=== PATIENT | female | born 1955 | race Caucasian/White ===

== ENCOUNTER → 2020-05-16 09:27 | Outpatient (BNVA) | payer BC, SELFPAY | PROVIDERS: PCP Nurse Practitioner Women's Health; Visit Provider Obstetrics & Gynecology ==

== ENCOUNTER 2020-06-06 11:57 | Outpatient (REF) | payer BC, SELFPAY ==
--- NOTE | ~2020-06-06 | MM_ITS ---
EXAMINATION: MM SCREENING DIGITAL BREAST TOMOSYNTHESIS, BILATERAL CLINICAL INFORMATION: Screening. Asymptomatic. The lifetime risk of breast cancer based on the Tyrer-Cuzick Model is 3%. COMPARISON: Mammography: 09/04/2018, 08/03/2017, 07/12/2016 TECHNIQUE: Digital breast tomosynthesis is performed in both the craniocaudal and mediolateral oblique views along with computer-aided detection (CAD). Synthesized 2D images are generated from the tomosynthesis. FINDINGS: There are scattered areas of fibroglandular density (ACR BI-RADS breast composition Category b). There are no significant masses, abnormal calcifications, or other abnormalities. Nodule posterior 3:00 left breast is similar to prior studies. The axilla and skin contours are unremarkable. MM/MM tomosynthesis screening BI IMPRESSION: No mammographic evidence of malignancy. ASSESSMENT: BI-RADS 2: Benign RECOMMENDATION: Routine annual mammography screening. This patient's information was entered into a reminder system with a target due date for their next mammogram.
== END 2020-06-06 11:58 | disposition home or self-care (01) ==
LOC: HO.MAMMO 11:57
PROVIDERS: Visit Provider Nurse Practitioner Family
DX: Z12.31 Encounter for screening mammogram for malignant neoplasm of breast (principal)
CPT/HCPCS: 77063; 77067

== ENCOUNTER → 2021-05-20 09:12 | Outpatient (BNVA) | payer BC, SELFPAY | PROVIDERS: PCP Nurse Practitioner Family; Visit Provider Advanced Practice Midwife ==

== ENCOUNTER 2021-06-07 12:01 | Outpatient (REF) | payer BC, SELFPAY ==
--- NOTE | ~2021-06-07 | MM_ITS ---
EXAMINATION: MM SCREENING DIGITAL BREAST TOMOSYNTHESIS, BILATERAL CLINICAL INFORMATION: Screening. Asymptomatic. The lifetime risk of breast cancer based on the Tyrer-Cuzick Model is 8%. COMPARISON: Mammography: 06/06/2020, 09/04/2018, 08/03/2017, 07/12/2016 TECHNIQUE: Digital breast tomosynthesis is performed in both the craniocaudal and mediolateral oblique views along with computer-aided detection (CAD). Synthesized 2D images are generated from the tomosynthesis. FINDINGS: There are scattered areas of fibroglandular density (ACR BI-RADS breast composition Category b). Breast tissue composition borders on predominantly fatty. There is a stable nodule posterior 3:00 left breast, likely intraparenchymal node is similar to prior studies. Neither breast shows interval mass or architectural abnormality or abnormal calcifications. The axilla and skin contours are unremarkable. MM/MM tomosynthesis screening BI IMPRESSION: No mammographic evidence of malignancy. ASSESSMENT: BI-RADS 2: Benign RECOMMENDATION: Routine annual mammography screening. This patient's information was entered into a reminder system with a target due date for their next mammogram.
== END 2021-06-07 12:02 | disposition home or self-care (01) ==
LOC: HO.MAMMO 12:01
PROVIDERS: Visit Provider Internal Medicine
DX: Z12.31 Encounter for screening mammogram for malignant neoplasm of breast (principal)
CPT/HCPCS: 77063; 77067

== ENCOUNTER 2022-05-23 09:18 | Outpatient (REF) | payer MEDICARE, SELFPAY ==
[2022-05-27 13:49] LABS: HPV mRNA E6/E7 rflx Not Detected (Not Detected)
== END 2022-05-23 09:19 | disposition home or self-care (01) ==
LOC: HO.LNP 09:18
PROVIDERS: Visit Provider Advanced Practice Midwife
DX: Z01.419 Encounter for gynecological examination (general) (routine) without abnormal findings (principal)
CPT/HCPCS: 87624; 88142

== ENCOUNTER 2022-07-22 09:28 | Outpatient (REF) | payer MEDICARE, SELFPAY ==
--- NOTE | ~2022-07-22 | MM_ITS ---
EXAMINATION: MM SCREENING DIGITAL BREAST TOMOSYNTHESIS, BILATERAL CLINICAL INFORMATION: Screening. Asymptomatic. The lifetime risk of breast cancer based on the Tyrer-Cuzick Model is 6%. COMPARISON: Mammography: 06/07/2021, 11/06/2020, 09/04/2018 TECHNIQUE: Digital breast tomosynthesis is performed in both the craniocaudal and mediolateral oblique views along with computer-aided detection (CAD). Synthesized 2D images are generated from the tomosynthesis. FINDINGS: There are scattered areas of fibroglandular density (ACR BI-RADS breast composition Category b). There are no significant masses, abnormal calcifications, or other abnormalities. There is no developing density or architectural abnormality. Small nodule posterior 3:00 left breast is decreased from prior studies. The axilla and skin contours are unremarkable. There are no significant changes. MM/MM tomosynthesis screening BI IMPRESSION: No mammographic evidence of malignancy. ASSESSMENT: BI-RADS 2: Benign RECOMMENDATION: Routine annual mammography screening. This patient's information was entered into a reminder system with a target due date for their next mammogram.
== END 2022-07-22 09:29 | disposition home or self-care (01) ==
LOC: HO.MAMMO 09:28
PROVIDERS: PCP Internal Medicine; Visit Provider Internal Medicine
DX: Z12.31 Encounter for screening mammogram for malignant neoplasm of breast (principal)
CPT/HCPCS: 77063; 77067

== ENCOUNTER 2023-05-29 09:25 | Outpatient (AMB) | payer MEDICARE, SELFPAY ==
--- NOTE | 2023-05-29 09:29 | A.OFFVIS_ITS ---
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 She is doing well with no concerns. Attempting to eat a healthy diet with calcium and vitamin D and stays active with exercise w/walking. Currently sexually active. Denies any vaginal dryness or irritation. STI testing offered; she declined. Last pap smear; 05/2022. Last mammogram; 07/2022. Colonoscopy is UTD. Booked-in November. Denies any family history of ovarian or colon cancer. FH breast cancer-sister PFSH Medical History Abnormal Pap smear of cervix Hypertension Osteoporosis Depression Surgical History Hx of right knee surgery History of tubal ligation History of delivery History of oral surgery Family History (Updated 05/29/23 @ 09:35 by Dotty Hoover CMA) Sister Breast cancer, Onset Age: 68 Heart disease Mother Pancreatic cancer Lung cancer Father Heart disease Social History Household Members Other:: partner Housing: House Alcohol intake: current Alcohol intake frequency: holidays/special occasions only Patient Tobacco Use Status: Former Tobacco user Current occupational status: retired Sexual orientation: Straight/Heterosexual Gender identity: Female Female Reproductive History Menstrual Menopause type: natural Total pregnancies: 2 Full term: 2 Number of Living Children: 2 Date of last pap smear: 05/23/22 Date of Mammogram: 07/22/22 Review of Systems Const All systems reviewed & are unremarkable except as noted in HPI and below Reports as per HPI Eyes Reports no additional complaints ENT Reports no additional complaints Card Reports no additional complaints Resp Reports no additional complaints GI Reports as per HPI and Reports no additional complaints Reports as per HPI Musc Reports no additional complaints Skin/Breast Reports as per HPI Neuro Reports no additional complaints Psych Reports no additional complaints Endo Reports no additional complaints Andrea/Lymph Reports no additional complaints Aller/Immun Reports no additional complaints Physical Exam Vital Signs: Last Vital Signs BP 110/70 05/29/23 09:32 BMI result Body Mass Index 26.8 Const General: cooperative, healthy appearing, no acute distress, well developed and alert Orientation/consciousness: patient oriented x3 HEENT Head: Yes normal to inspection Eyes General: appearance normal, both eyes and all related structures Neck Neck: Yes normal visual inspection Thyroid: Thyroid normal Chest Chest palpation & inspection: normal inspection of the chest and other (no puckering, dimpling, peau de orange, retraction, discharge, masses) Breast/axilla inspection: normal inspection of the breasts Breast/axilla palpation: normal palpation of the breasts Resp Effort & Inspection: normal respiratory effort GI Inspection: Yes normal to inspection Palpation (GI): Soft to palpation Rectal Exam - Female: deferred General: Yes bladder normal to palpation External Female Exam: normal external appearance and normal appearance of the urethra Speculum Exam - Vagina: normal appearance of the vagina, normal palpation, normal vaginal discharge and vagina atrophic Speculum Exam - Cervix: normal appearance of the cervix and normal palpation Bimanual exam- vagina & uterus: normal bimanual exam, normal palpation, uterine size normal, bladder normal to palpation, normal palpation and non-tender Bimanual Exam- Adnexa, other: no masses Skin General skin exam: no rashes or lesions noted Rashes: no rashes Neuro General: patient oriented x3 Cognition (Neuro): normal cognition Extrem General: Yes normal to inspection Psych Attitude: cooperative Thought process: Normal thought process present Assessment & Plan Assessment & Plan (1) Encounter for well woman exam with routine gynecological exam: Code(s): Z01.419 - Encounter for gynecological examination (general) (routine) without abnormal findings Plan Discussed: Current recommendations for pap smears per ASCCP guidelines. Breast awareness, periodic self breast exams and yearly mammogram. Maintain a healthy lifestyle, well balanced diet including Calcium 1,200 mg and Vitamin D 600 IU daily, and routine exercise. Contact the office with any postmenopausal bleeding. Patient verbalizes understanding and agrees to the plan of care. She was given opportunity to ask questions and all questions were answered to the best of my ability. RTO in 1 year for annual primary care nurse exam. This note is constructed using voice recognition software. While every effort has been made to ensure accuracy, tire bladder maker errors may have been included. Coding Level of Care Code Est Pt Prev Care >65y(73534) Diagnoses Encounter for well woman exam with routine gynecological exam Z01.419
[2023-05-29 09:32] VITALS: BP 110/70; BMI 26.8
== END 2023-05-29 10:32 | disposition home or self-care (01) ==
PROVIDERS: Visit Provider Advanced Practice Midwife
DX: Z01.419 Encounter for gynecological examination (general) (routine) without abnormal findings (principal)
CPT/HCPCS: 99397

== ENCOUNTER → 2023-05-29 09:25 | Outpatient (BNVA) | payer MEDICARE, SELFPAY | PROVIDERS: Visit Provider Advanced Practice Midwife ==

== ENCOUNTER 2024-01-12 09:43 | Outpatient (REF) | payer MEDICARE, SELFPAY ==
--- NOTE | ~2024-01-12 | MM_ITS ---
EXAMINATION: MM SCREENING DIGITAL BREAST TOMOSYNTHESIS, BILATERAL CLINICAL INFORMATION: Screening. Asymptomatic. COMPARISON: Mammography: Comparison is made with available priors TECHNIQUE: Digital breast mammography with tomosynthesis is performed in both the craniocaudal and mediolateral oblique views along with computer-aided detection (CAD). FINDINGS: There are scattered areas of fibroglandular density (ACR BI-RADS breast composition Category b). There are no significant masses, abnormal calcifications, or other abnormalities. MM/MM tomosynthesis screening BI IMPRESSION: No mammographic evidence of malignancy. ASSESSMENT: BI-RADS BI-RADS 1 - Negative RECOMMENDATION: Routine annual mammography screening. 1 year F/U This examination should not preclude the clinical evaluation of a suspicious palpable abnormality. This patient's information was entered into a reminder system with a target due date for their next mammogram. Electronically signed by: Ester Jennings DO 01/20/2024 10:29 AM [facility]
== END 2024-01-12 09:44 | disposition home or self-care (01) ==
LOC: HO.MAMMO 09:43
PROVIDERS: PCP Internal Medicine; Visit Provider Internal Medicine
DX: Z12.31 Encounter for screening mammogram for malignant neoplasm of breast (principal)
CPT/HCPCS: 77063; 77067

== ENCOUNTER → 2024-01-12 10:00 | Outpatient (BNV) | payer MEDICARE, SELFPAY | PROVIDERS: PCP Internal Medicine; Visit Provider Internal Medicine | DX: Z12.31 Encounter for screening mammogram for malignant neoplasm of breast (principal) | CPT/HCPCS: 77063; 77067 ==

== ENCOUNTER 2024-09-13 11:11 | Outpatient (AMB) | payer MEDICARE, SELFPAY ==
--- NOTE | 2024-09-13 11:17 | MHC.OFFVIS ---
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 She is doing well with accounting/finance tutor concerns. Currently sexually active. Denies any vaginal dryness or irritation. Attempting to eat a healthy diet with calcium and vitamin D and stays active with exercise. Last pap smear; 2022, negative. Last mammogram; 2023. Colonoscopy is UTD. Denies any family history of breast, ovarian or colon cancer. [facility] Medical History Abnormal Pap smear of cervix Hypertension Osteoporosis Depression Surgical History History of ankle surgery Hx of right knee surgery History of tubal ligation History of delivery History of oral surgery Family History Sister Breast cancer, Onset Age: 68 Heart disease Mother Pancreatic cancer Lung cancer Father Heart disease Sister Heart disease Social History Household Members Other:: partner Housing: House Alcohol intake: current Alcohol intake frequency: holidays/special occasions only Patient Tobacco Use Status: Former Tobacco user Current occupational status: retired Sexual orientation: Straight/Heterosexual Gender identity: Female Female Reproductive History Menstrual control method: permanent sterilization Permanent Sterilization: BTL Menopause type: natural Total pregnancies: 2 Full term: 2 Number of Living Children: 2 Date of last pap smear: 05/23/22 (neg pap and hpv) History of abnormal pap smear: Yes (2017 ascus-h, colpo) Date of Mammogram: 01/12/24 (Birad 1) Review of Systems Const All systems reviewed & are unremarkable except as noted in HPI and below Reports as per HPI Eyes Reports no additional complaints ENT Reports no additional complaints Card Reports no additional complaints Resp Reports no additional complaints GI Reports as per HPI and Reports no additional complaints Reports as per HPI Musc Reports no additional complaints Skin/Breast Reports as per HPI Neuro Reports no additional complaints Psych Reports no additional complaints Endo Reports no additional complaints Andrea/Lymph Reports no additional complaints Aller/Immun Reports no additional complaints Physical Exam Vital Signs: Last Vital Signs BP 128/74 09/13/24 11:19 BMI result Body Mass Index 24.0 Const General: cooperative, healthy appearing, no acute distress, well developed and alert Orientation/consciousness: patient oriented x3 HEENT Head: Yes normal to inspection Eyes General: appearance normal, both eyes and all related structures Neck Neck: Yes normal visual inspection Thyroid: Thyroid normal Chest Chest palpation & inspection: normal inspection of the chest and other (no puckering, dimpling, peau de orange, retraction, discharge, masses) Breast/axilla inspection: normal inspection of the breasts Breast/axilla palpation: normal palpation of the breasts Resp Effort & Inspection: normal respiratory effort GI Inspection: Yes normal to inspection Palpation (GI): Soft to palpation Rectal Exam - Female: deferred General: Yes bladder normal to palpation External Female Exam: normal external appearance and normal appearance of the urethra Speculum Exam - Vagina: normal appearance of the vagina, normal palpation and normal vaginal discharge Speculum Exam - Cervix: normal appearance of the cervix and normal palpation Bimanual exam- vagina & uterus: normal bimanual exam, normal palpation, uterine size normal, bladder normal to palpation, normal palpation and non-tender Bimanual Exam- Adnexa, other: no masses Skin General skin exam: no rashes or lesions noted Rashes: no rashes Neuro General: patient oriented x3 Cognition (Neuro): normal cognition Extrem General: Yes normal to inspection Psych Attitude: cooperative Thought process: Normal thought process present Assessment & Plan Assessment & Plan (1) Encounter for well woman exam with routine gynecological exam: Code(s): Z01.419 - Encounter for gynecological examination (general) (routine) without abnormal findings Category: Medical Plan Discussed: Current recommendations for pap smears per ASCCP guidelines. Breast awareness, periodic self breast exams and yearly mammogram. Maintain a healthy lifestyle, well balanced diet including Calcium 1,200 mg and Vitamin D 600 IU daily, and routine exercise. Contact the office with any postmenopausal bleeding. Patient verbalizes understanding and agrees to the plan of care. She was given opportunity to ask questions and all questions were answered to the best of my ability. 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 This note is constructed using voice recognition software. While every effort has been made to ensure accuracy, white lead filterer errors may have been included. Coding Level of Care Code Est Pt Prev Care >65y(36192) Diagnoses Encounter for well woman exam with routine gynecological exam Z01.419
[2024-09-13 11:19] VITALS: BP 128/74; BMI 24.0
--- OUTSIDE RECORDS SUMMARY | 2024-09-13 12:27 | XMS_ITS | Patient Health Record ---
Author Organization [facility] Usama Bajwaley Address [address] [facility] [place] [address] Care Team Providers Care Buildings And Grounds Coordinator Name Role Phone Keyur RICHARD, Abraham Primary Care Provider Unava ilable Black, Dasha Unavailable [phone] Allergies Allergen (clinical drug ingredient) Drug/Non Drug Allergy documented on EMR Reaction Allergy Type Onset Date Status acetaminophen / oxycodone Percocet itching Drug Allergy Active Reason For Referral No Information Medications Medication SIG (Take, Route, Frequency, Duration) Notes Start Date End Date Status Work Note . . . Pt may return to work at regular hours and duty starting 02/10/18 01/19/2018 Not-Taking Neurontin 300 MG 1-2 capsule Orally Three times a day; Duration: 5 days Not-Taking Extra Strength Acetaminophen 500 MG 2 capsules as needed Orally every 6 hrs; Duration: 5 days Not-Taking Work Note . . . Medical from wor k 12/18/17-02/10/18 12/08/2017 Not-Taking Gabapentin 300 MG 1 capsule Orally at bedtime; Duration: 7 days 09/10/2021 Not-Taking Ibuprofen 200 MG 3 tablets with food or milk as needed Orally every 6 hrs; Duration: 5 days Not-Taking Acetaminophen Extra Strength 500 MG 2 tablet as needed Orally every 6 hrs; Duration: 14 days 09/10/2021 Not-Taking Ibuprofen 800 MG 1 tablet with food o r milk as needed Orally every 6 hrs; Duration: 10 days 09/10/2021 Not-Taking buPROPion HCl ER (XL) 150 MG 1 tablet in the morning Orally Once a day Active Ibandronate Sodium 150 MG 1 tablet Orally Active Immunizations Vaccine Route Administration Date Status Comme nts COVID-19 Moderna Vaccine Unknown 01/18/2021 Administered 1st 05/02/2020 2nd 05/30/2020 Social History Tobacco Use: Social History Observation Description Date Details (start date - stop date) Former Smoker NA - NA Tobacco Use/Smoking Question Answer Notes Are you a: former smoker Additional Findings: Tobacco Non-User Current no n-smoker Alcohol Screen Question Answer Notes Did you have a drink contain ing alcohol in the past year? Yes How often did you have a dri nk containing alcohol in the past year? 2 to 3 times a week (3 points) How many drinks did you have on a typical day when you were drinking in the past year? 3 or 4 drinks (1 point) How often did you have 6 or more drinks on one occasion in the past year? Less than monthly (1 point) Points 5 Interpretation Positive Tobacco use other than smoking: Question Answer Notes Are you an other tobacco user? No Problems Problem Type SNOMED Code ICD Code Onset Dates Problem Status W/U Status Risk Notes Problem Acquired hammer toe of right foot (2017782511084 105) Other hammer toe(s) (acquired), right foot (M20.41) Active confirmed Problem Acquired hammer toe of left foot (1159375571798 103) Other hammer toe(s) (acquired), left foot (M20.42) Active confirmed Plan Of Treatment Pending Test Test Name Order Date X ray : Foot, left 2V 08/14/2015 X ray : Foot, right 2V 08/14/2015 X ray : Foot, left 3V 04/12/2021- Ganglion Cyst Injection/Aspiratio n 08/14/2015- Ganglion Cyst Injection/Aspiratio n 10/12/2015 Insurance Providers Payer Name Payer Address Payer Phone Subscriber Number Group Number Insured Name Patient Relationship to Insured Coverage Start Date Coverage End Date [facility] [address] [place] [address] [id number] Christie Haas Self - patient is the insured Medical (General) History Medical History History ICD Code Depression Chicken pox Osteoporosis Surgical History Surgery Date(Month/Year) Excision ganglion cyst 12/23/2017 hammer toe 12/23/2017
== END 2024-09-13 11:40 | disposition home or self-care (01) ==
LOC: HO.HWS 11:12
PROVIDERS: PCP Internal Medicine; Visit Provider Advanced Practice Midwife
DX: Z01.419 Encounter for gynecological examination (general) (routine) without abnormal findings (principal)
CPT/HCPCS: G0101

== ENCOUNTER → 2024-09-13 11:11 | Outpatient (BNVA) | payer MEDICARE, SELFPAY | PROVIDERS: PCP Internal Medicine; Visit Provider Advanced Practice Midwife | DX: Z01.419 Encounter for gynecological examination (general) (routine) without abnormal findings (principal) | CPT/HCPCS: G0101 ==

== ENCOUNTER 2025-01-20 08:46 | Outpatient (REF) | payer MEDICARE, SELFPAY ==
--- NOTE | ~2025-01-20 | MM_ITS ---
EXAMINATION: MM SCREENING DIGITAL BREAST TOMOSYNTHESIS, BILATERAL CLINICAL INFORMATION: Screening. Asymptomatic. COMPARISON: Mammography: Comparison is made with available priors TECHNIQUE: Digital breast mammography with tomosynthesis is performed in both the craniocaudal and mediolateral oblique views along with computer-aided detection (CAD). FINDINGS: There are scattered areas of fibroglandular density. There are no significant masses, abnormal calcifications, or other abnormalities. MM/MM tomosynthesis screening BI IMPRESSION: No mammographic evidence of malignancy. ASSESSMENT: BI-RADS Category 1: Negative RECOMMENDATION: Routine annual mammography screening. 1 year F/U This examination should not preclude the clinical evaluation of a suspicious palpable abnormality. This patient's information was entered into a reminder system with a target due date for their next mammogram. Electronically signed by: Ester Jennings DO 01/24/2025 10:23 AM [facility]
== END 2025-01-20 08:47 | disposition home or self-care (01) ==
LOC: HO.MAMMO 08:46
PROVIDERS: PCP Nurse Practitioner Family; Visit Provider Internal Medicine
DX: Z12.31 Encounter for screening mammogram for malignant neoplasm of breast (principal)
CPT/HCPCS: 77063; 77067

== ENCOUNTER → 2025-01-20 09:00 | Outpatient (BNV) | payer MEDICARE, SELFPAY | PROVIDERS: PCP Nurse Practitioner Family; Visit Provider Internal Medicine | DX: Z12.31 Encounter for screening mammogram for malignant neoplasm of breast (principal) | CPT/HCPCS: 77063; 77067 ==